=== PATIENT | female | born 1965 | race Caucasian/White ===

== ENCOUNTER 2021-06-06 14:28 | Observation (INO) | payer MEDICARE ==
[~2021-06-06] VITALS: Ht 154.9 cm; Wt 120.2 kg
[2021-06-06 16:14] LABS: HEMOGLOBIN 13.9 gm/dl (12.3-15.3); RED BLOOD COUNT 4.58 M/UL (4.00-5.10); WHITE BLOOD COUNT 6.3 K/UL (4.5-11.0)
[2021-06-06 16:37] LABS: BUN/CREATININE RATIO 19 (0-10)
[2021-06-06] MEDS ORDERED: SYNTHROID150 MCG PO (22:08)
[2021-06-06] MEDS ORDERED: ABILIFY 2 MG TAB2 MG PO (22:09)
[2021-06-06] MEDS ORDERED: LASIX20 MG PO (22:10)
[2021-06-06] MEDS ORDERED: SERTRALINE HCL100 MG PO (22:10)
[2021-06-06] MEDS ORDERED: COREG 25MG TAB25 MG PO (22:10)
[2021-06-06] MEDS ORDERED: POTASSIUM99 M1 PO (22:11)
[2021-06-06] MEDS ORDERED: PROTONIX40 MG PO (22:11)
[2021-06-06] MEDS ORDERED: ASPIRIN325 MG PO (22:11)
[2021-06-07 04:43] LABS: HEMOGLOBIN 13.9 gm/dl (12.3-15.3); RED BLOOD COUNT 4.66 M/UL (4.00-5.10)
[2021-06-07 04:58] LABS: BUN/CREATININE RATIO 17 (0-10)
[2021-06-07] MEDS ORDERED: IRON325 M1 PO (22:11)
[2021-06-07] MEDS ORDERED: ELDERBERRY ZIN1 EACH PO (22:12)
[2021-06-07] MEDS ORDERED: VITAMIN D3125 MCG PO (22:12)
== END 2021-06-07 18:01 | disposition home or self-care (01) ==
LOC: ER1 14:28 → M/S 20:35 → CDU 20:35 → M/S 21:49
PROVIDERS: Physician Assistant; ADMIT Internal Medicine
DX: U07.1 COVID-19 (principal); I21.4 Non-ST elevation (NSTEMI) myocardial infarction; I50.22 Chronic systolic (congestive) heart failure; I42.8 Other cardiomyopathies; F17.210 Nicotine dependence, cigarettes, uncomplicated; F41.9 Anxiety disorder, unspecified; F32.A Depression, unspecified; E66.2 Morbid (severe) obesity with alveolar hypoventilation; Z68.43 Body mass index [BMI] 50.0-59.9, adult; Z79.899 Other long term (current) drug therapy; Z95.810 Presence of automatic (implantable) cardiac defibrillator
CPT/HCPCS: 36415; 36600; 71045; 80053; 82550; 82553; 82803; 83735; 83874; 84484; 85025; 86140; 93005; 94664; 99284; G0378; J1650; M0247; U0002